=== PATIENT | female | born 1965 | race Caucasian/White ===

== ENCOUNTER 2017-09-30 18:23 | Emergency (ER) | payer OTHER ==
[2017-09-30] MEDS ORDERED: Morphine 2 MG/ML Syringe IVPUSH ONE (19:30)
[2017-09-30] MEDS ORDERED: Morphine 2 MG/ML Syringe IM ONE (19:40)
[2017-09-30] MEDS ORDERED: cefTRIAXone 1 GM in Sodium Chloride 0.9% 50 ML IV ONE (20:00)
[2017-09-30] MEDS ORDERED: metroNIDAZOLE/Normal Saline 500 MG in Premix Bag 1 BAG IV ONE (20:00)
[2017-09-30] MEDS ORDERED: Ondansetron 4 MG/2 ML SDV ONE (21:40)
[2017-09-30] MEDS ORDERED: HYDROmorphone 2 MG/ML Syringe ONE (21:40)
[2017-09-30] MEDS ORDERED: Morphine 2 MG/ML Syringe ONE (21:40)
[2017-09-30] MEDS ORDERED: Morphine 2 MG/ML Syringe IVPUSH PRN (22:23)
--- NOTE | 2017-09-30 22:23 | EDM.PDOC ---
ED HPI GENERAL MEDICAL PROBLEM - General Chief Complaint: General Stated Complaint: FACIAL INFECTION Time Seen by Provider: 09/30/17 18:24 Source of Information: Reports: Patient, Family History Limitations: Reports: Other (difficulty moving mouth) - History of Present Illness INITIAL COMMENTS - FREE TEXT/NARRATIVE: This is a 51yo F presenting to the ED with 2 days of increasing left jaw pain and swelling. She recently saw a clinic provider who prescribed amoxicillin yesterday. Over the past 24hours she has had increasing pain and swelling to the point where she is unable to swallow her saliva but has no issues breathing. Patient states her symptoms started progressing in the last 12 hours. She denies any prior dental concerns or issues and recently saw a dentist and was examined. Onset: Gradual Duration: Day(s):, Getting Worse Location: Reports: Face Quality: Reports: Ache Severity: Severe Improves with: Reports: None Worsens with: Reports: Movement Associated Symptoms: Reports: Fever/Chills LEFT FACE Pain Score (Numeric/FACES): 9 - Related Data Allergies Allergy/AdvReac Type Severity Reaction Status Date / Time lisinopril Allergy Anaphylactic Verified 09/30/17 18:30 Shock Sulfa (Sulfonamide Allergy Cannot Verified 09/30/17 18:30 Antibiotics) Remember ED ROS GENERAL - Review of Systems Review Of Systems: ROS reveals no pertinent complaints other than HPI. ED EXAM, GENERAL - Physical Exam Exam: See Below Exam Limited By: No Limitations General Appearance: Alert, WD/WN, Severe Distress Eye Exam: Bilateral Eye: EOMI, PERRL Ears: Normal External Exam Nose: Normal Inspection Throat/Mouth: No Airway Compromise, Other (unable to visualize oral cavity due to patient's severe pain with mouth movement and patient refusing to open mouth) Head: Other (left facial swelling at left jaw line with visible protrusion 4x5cm at middle 1/3 mandible) Neck: Other (swelling and erythem of the anterior neck skin and subcutaneous tissue) Course - Vital Signs Last Recorded V/S: Last Vital Signs Temp 37.7 C 09/30/17 18:24 Pulse 94 09/30/17 18:24 Resp 22 H 09/30/17 18:24 BP 194/88 H 09/30/17 18:24 Pulse Ox 99 09/30/17 18:24 - Orders/Labs/Meds Orders: Active Orders 24 hr Category Date Time Status Max Facial Sinus wo Cont [CT] Stat Exams 09/30/17 18:31 Taken Soft Tissue Neck wo Cont [CT] Stat Exams 09/30/17 18:31 Taken Morphine Med 09/30/17 22:23 Active 2 mg IVPUSH Q1H PRN Medication Orders Morphine Sulfate (Morphine) 2 mg IVPUSH Q1H PRN PRN Reason: Pain Labs: Laboratory Tests 09/30/17 09/30/17 09/30/17 Range/Units 18:51 18:53 18:53 WBC 4.8 (4.0-11.0) K/uL RBC 4.06 (3.80-5.80) M/uL Hgb 11.3 L (11.5-16.5) g/dL Hct 34.4 L (37.0-47.0) % MCV 85 (76-96) fL MCH 27.8 (27.0-32.0) pg MCHC 32.8 (31.0-35.0) g/dL RDW 13.5 (11.0-16.0) % Plt Count 183 (150-500) K/uL MPV 10.2 H (6.0-10.0) fL Neut % (Auto) 84.7 H (45.0-70.0) % Lymph % (Auto) 12.4 L (20.0-40.0) % [place] % (Auto) 2.5 L (3.0-10.0) % Eos % (Auto) 0.2 L (1.0-5.0) % Baso % (Auto) 0.2 (0.0-0.5) % Neut # (Auto) 4.08 (2.00-7.50) K/uL Lymph # (Auto) 0.60 L (1.50-4.00) K/uL [place] # (Auto) 0.12 L (0.20-0.80) K/uL Eos # (Auto) 0.01 L (0.04-0.40) K/uL Baso # (Auto) 0.01 L (0.02-0.10) K/uL Sodium 138 (136-145) mmol/L Potassium 4.0 (3.5-5.1) mmol/L Chloride 103 (98-107) mmol/L Carbon Dioxide 17.4 L (21.0-32.0) mmol/L Anion Gap 21.6 H (5.0-15.0) mmol/L BUN 39 H (8-26) mg/dL Creatinine 1.08 H (0.55-1.02) mg/dL Est Cr Clr Drug Dosing 52.62 mL/min Estimated GFR (MDRD) 53 L (>60) MLS/MIN BUN/Creatinine Ratio 36.1 H (6-25) Glucose 332 H (74-100) mg/dL Lactic Acid 2.69 H (0.90-1.70) mmol/L Calcium 9.3 (8.5-10.1) mg/dL Meds: Medications Generic Name Dose Route Start Last Admin Trade Name Freq PRN Reason Stop Dose Admin Morphine Sulfate 2 mg 09/30/17 22:23 Morphine IVPUSH Q1H PRN Pain Discontinued Medications Generic Name Dose Route Start Last Admin Trade Name Freq PRN Reason Stop Dose Admin Hydromorphone HCl 1 mg 09/30/17 22:24 Dilaudid IVPUSH 09/30/17 22:25 ONETIME ONE Ceftriaxone Sodium 1 gm/ 50 mls @ 200 mls/hr 09/30/17 20:00 09/30/17 20:12 Sodium Chloride IV 09/30/17 20:14 200 mls/hr ONETIME ONE Administration Metronidazole 500 mg/ Premix 100 mls @ 100 mls/hr 09/30/17 20:00 09/30/17 20: 40 IV 09/30/17 20:59 100 mls/hr ONETIME ONE Administration Morphine Sulfate 2 mg 09/30/17 19:30 09/30/17 19:30 Morphine IVPUSH 09/30/17 19:31 2 mg ONETIME ONE Administration Morphine Sulfate 2 mg 09/30/17 19:40 09/30/17 19:40 Morphine IM 09/30/17 19:41 2 mg ONETIME ONE Administration Departure - Departure Time of Disposition: 22:00 Disposition: DC/Tfer to Acute Hospital 02 Condition: Serious Clinical Impression: Submandibular abscess, Cellulitis and abscess of face - Discharge Information Referrals: PCP,None [Primary Care Provider] - Forms: ED Department Discharge - Problem List & Annotations (1) Cellulitis and abscess of face SNOMED Code(s): 718455671 Code(s): L03.211 - CELLULITIS OF FACE; L02.01 - CUTANEOUS ABSCESS OF FACE Status: Acute Priority: High (2) Submandibular abscess SNOMED Code(s): 07502251 Code(s): K12.2 - CELLULITIS AND ABSCESS OF MOUTH Status: Acute Priority: High - Problem List Review Problem List Initiated/Reviewed/Updated: Yes - My Orders Last 24 Hours: My Active Orders 09/30/17 18:31 Max Facial Sinus wo Cont [CT] Stat Soft Tissue Neck wo Cont [CT] Stat 09/30/17 22:23 Morphine 2 mg IVPUSH Q1H PRN - Assessment/Plan Last 24 Hours: My Active Orders 09/30/17 18:31 Max Facial Sinus wo Cont [CT] Stat Soft Tissue Neck wo Cont [CT] Stat 09/30/17 22:23 Morphine 2 mg IVPUSH Q1H PRN Plan: Consulted surgeon in [place] and recommended further workup and care at [facility] for ENT specialist. Consulted ENT [facility] specialist Dr. Blake and discussed plan with ER provider Dr. Blanton. Patient to be discharged and directed go to [facility] ER for surgical management. IV Rocephin 1g and IV Metronidazole 500mg Given prior to discharge. Morphine and Dilaudid given for pain control. Counseled on vigilant monitoring of breathing and to stop at nearest ER if any symptoms develop. Patient discharged in stable condition.
[2017-09-30] MEDS ORDERED: HYDROmorphone 2 MG/ML Syringe IVPUSH ONE (22:24)
--- NOTE | 2017-10-02 10:46 | CT ---
DATE OF SERVICE: 09/30/17 CLINICAL DATA: PAIN FACIAL CT: Multislice axial acquisition without IV contrast was performed. Axial images and sagittal and coronal reformations are reviewed. No priors. There is a mixed attenuation mass involving the body and angle of the mandible and submandibular region on the left. There is extensive soft tissue swelling with some fluid. There is also extensive soft tissue emphysema. This is consistent in appearance with an abscess. It measures greater than 3 cm in its maximum axial dimension. There is adjacent subcutaneous edema and infiltration. There is also soft tissue swelling and infiltration in the left parapharyngeal region and adjacent to the left submandibular gland. This abnormality is only fractionally visualized on this exam and does appear to extend inferiorly to the scan planes. I do not see any definite associated lytic or blastic bone lesions. There are enlarged lymph nodes in the deep cervical region also. No other significant findings. [id number] [facility]
--- NOTE | 2017-10-02 10:53 | CT ---
DATE OF SERVICE: 09/30/17 CLINICAL DATA: PAIN UNENHANCED NECK CT: Multislice acquisition through the neck without IV contrast was performed. Axial images and sagittal and coronal reformations are reviewed. The mixed attenuation gas containing mass adjacent to the body and angle of the mandible as well as within the left submandibular region is again seen. It is consistent in appearance with an abscess. It measures greater than 3 mm in its maximum axial dimension. There is extensive adjacent soft tissue swelling and fatty infiltration. It does extend into the left parapharyngeal space and it does produce mass effect on the left vallecula and left piriform sinus. There is also asymmetric swelling of the left submandibular gland and adjacent soft tissues. There are multiple enlarged submandibular and deep cervical nodes on the left. These are probably reactive. No definite bony erosions. ENT consultation is recommended. The patient's physician was notified of the findings by virtual radiologic preliminary radiology report. [id number] [facility]
== END 2017-09-30 21:56 ==
LOC: LB.ED 18:23
DX: K12.2 Cellulitis and abscess of mouth (principal); L03.211 Cellulitis of face; L02.01 Cutaneous abscess of face; Z88.8 Allergy status to other drugs, medicaments and biological substances; Z88.2 Allergy status to sulfonamides
CPT/HCPCS: 36415; 70486; 70490; 80048; 83605; 85025; 96365; 96372; 96375; 99284-25; J0696; J1170; J2270; J2405; J7050